=== PATIENT | female | born 1980 | race African-American/Black ===

== ENCOUNTER 2016-09-09 16:34 | Emergency (ER) | payer SELFPAY ==
[~2016-09-09] VITALS: Ht 149.9 cm; Wt 47.6 kg
[2016-09-09 16:56] VITALS: BP 122/88
--- NOTE | 2016-09-09 17:32 | PHYS DOC ---
Past Medical History Past Medical History: Anxiety, GERD, Migraines, Other Additional Past Medical Histor: gallstones, chronic abdominal pain Past Surgical History: Other Additional Past Surgical Histo: d and c Smoking: Cigar Alcohol Use: Occasionally Drug Use: Marijuana Adult General Chief Complaint Chief Complaint: DENTAL PROBLEM HPI HPI Patient is a 36 year old female who presents with lower lip laceration and dental injury after mechanical fall last night at 2300. She reports that she tripped and fell. Her front top teeth went into the lower lip and caused a laceration. Tooth #8 broke. She glued the tooth back together at home. She denies loss of consciousness. She does not have headache, nausea, vomiting, dizziness, vision changes, neck pain, or fevers. She is unsure of her last tetanus immunization. She does not have a PCP. Review of Systems Review of Systems Constitutional: Denies fever or chills. [] Eyes: Denies change in visual acuity, redness, or eye pain. [] HENT: Denies ear pain, nasal congestion or sore throat. Reports dental fracture and intraoral laceration. GI: Denies abdominal pain, nausea, vomiting. [] Musculoskeletal: Denies back pain or joint pain. Denies neck pain. Integument: Denies rash or skin lesions. Reports intraoral laceration. Neurologic: Denies headache, focal weakness or sensory changes. Denies loss of consciousness or dizziness. All systems reviewed and negative unless otherwise stated in the HPI. Current Medications Current Medications Current Medications Medications (Trade) Dose Ordered Sig/Nancy Start Time Stop Time Status Last Admin Dose Admin Diphtheria/ Tetanus/Acell Pertussis (Boostrix) 0.5 ml ONCE ONCE 09/09/16 17:45 09/09/16 17:46 DC 09/09/16 17:42 0.5 ML Allergies Allergies Allergies Coded Allergies Type Severity Reaction Last Updated Verified Cephalexin Monohydrate Allergy Severe swelling 08/31/14 Yes Physical Exam Physical Exam Constitutional: Well developed, well nourished, no acute distress, non-toxic appearance. [] HENT: Normocephalic, atraumatic, bilateral external ears normal, oropharynx moist, no oral exudates, nose normal. Bilateral TMs without erythema or bulging. There is no hemotympanum. There is no septal hematoma or evidence of epistaxis in the nares. Tooth #8 is fractured but has been glued back in place. There is no dental avulsion. There is a 1 cm intraoral laceration of the left lower lip that does not extend through to the exterior. There is moderate swelling of the lower lip. Eyes: PERRLA, EOMI, conjunctiva normal, no discharge. [] Neck: Normal range of motion, no midline or paraspinal tenderness, supple, no stridor. [] Skin: Warm, dry, no erythema, no rash. Intraoral laceration of the lower lip. Back: No tenderness, no CVA tenderness. [] Extremities: No tenderness, no cyanosis, no clubbing, ROM intact, no edema. [] Neurologic: Alert and oriented X 3, normal motor function, normal sensory function, no focal deficits noted. CN II-XII grossly intact. Psychologic: Affect normal, judgement normal, mood normal. [] Current Patient Data Vital Signs Vital Signs Date Time Temp Pulse Resp B/P Pulse Ox O2 Delivery O2 Flow Rate FiO2 09/09/16 16:56 98.3 102 20 100 Room Air 98.3 EKG EKG [] Radiology/Procedures Radiology/Procedures [] Course & Med Decision Making Course & Med Decision Making Pertinent Labs and Imaging studies reviewed. (See chart for details) Patient presents with intraoral lip laceration and broken tooth after mechanical fall last night. She removed the tooth herself at home. There is swelling of the lower lip associated with the laceration. It has been almost 24 hours since the injury, so is not repaired in the emergency department. There are no neurologic deficits. The patient is instructed to adhere to a soft diet. She is instructed to follow-up with a dentist as soon as possible. She is discharged home with prescription for antibiotics and pain medication. Return precautions were discussed. She verbalizes understanding and agrees with plan. Dragon Disclaimer Dragon Disclaimer This electronic medical record was generated, in whole or in part, using a voice recognition dictation system. Departure Departure Impression: Primary Impression: Broken tooth Additional Impression: Lip laceration Disposition: HOME, SELF-CARE Condition: STABLE Referrals: NO PCP (PCP) Patient Instructions: Mouth Laceration, [id number], Tooth Injuries, Easy-to- Read Additional Instructions: Please complete all the prescribed antibiotics, even if you are feeling better. Please take the prescribed pain medication as instructed. Do not drive or operate heavy machinery while taking pain medication. Please follow-up with the dentist of your choice as soon as possible. Return to the emergency department if you have any new or concerning symptoms. Scripts Clindamycin Hcl 150 Mg Capsule2 Cap PO QID 10 Days Prov:COLLIN GONZALES 09/09/16 Hydrocodone/Apap 5-325 ([place] 5-325 Tablet)1 Each Tablet1 Tab PO PRN Q6HRS PRN PAIN #20 TAB Prov:COLLIN GONZALES 09/09/16 Problem Qualifiers Primary Impression: Broken tooth Encounter type: initial encounter Fracture type: closed Qualified Code: S02.5XXA - Fracture of tooth (traumatic), initial encounter for closed fracture Additional Impression: Lip laceration Encounter type: initial encounter Qualified Code: S01.511A - Laceration without foreign body of lip, initial encounter COLLIN GONZALES Sep 09, 2016 17:32
[2016-09-09] MEDS ORDERED: DIPHTH,PERTUSS(ACELL),TET TOX 0.5 ML DISP.SYRIN. VAX IM ONE (17:45)
[2016-09-09] MEDS ORDERED: CLIN-44 PO (18:16)
[2016-09-09] MEDS ORDERED: HYDR-971 PO (18:16)
== END 2016-09-09 18:18 | disposition home or self-care (01) ==
LOC: ER 16:34
DX: S02.5XXA Fracture of tooth (traumatic), initial encounter for closed fracture (principal); S01.511A Laceration without foreign body of lip, initial encounter; G89.29 Other chronic pain; F41.9 Anxiety disorder, unspecified; K21.9 Gastro-esophageal reflux disease without esophagitis; G43.909 Migraine, unspecified, not intractable, without status migrainosus; F17.210 Nicotine dependence, cigarettes, uncomplicated; F12.10 Cannabis abuse, uncomplicated; Z88.8 Allergy status to other drugs, medicaments and biological substances; W01.0XXA Fall on same level from slipping, tripping and stumbling without subsequent striking against object, initial encounter; Y93.89 Activity, other specified; Y92.89 Other specified places as the place of occurrence of the external cause; Y99.8 Other external cause status
CPT/HCPCS: 12002; 90471; 90715; 99283-25

== ENCOUNTER 2017-08-31 08:05 | Emergency (ER) | payer SELFPAY ==
[2017-08-31] MEDS: CAPSAICIN 0.025% TOPICAL CREAM 60GM TUBE. TP (08:30)
[2017-08-31 08:35] LABS: URINE HCG POC HCG NEGATIVE (Negative)
[2017-08-31 08:37] LABS: BILIRUBIN,URINE NEGATIVE (NEG); CLARITY,URINE TURBID; COLOR,URINE YELLOW; GLUCOSE,URINE NEGATIVE (NEG); NITRITE,URINE NEGATIVE (NEG); PROTEIN,URINE NEGATIVE (NEG-TRACE); UROBILINOGEN,URINE 0.2 mg/dL (0.2 mg/dL)
[2017-08-31 08:45] LABS: SQUAMOUS EPITHELIAL CELL,UR MANY /LPF
[2017-08-31 08:46] LABS: RBC,URINE 0 /HPF (0-2)
[2017-08-31 08:47] LABS: BACTERIA,URINE MANY /HPF (0-FEW)
[2017-08-31 08:56] LABS: BASO # 0.2 x10^3/uL (0.0-0.2); BASO % 1 % (0-3); EOS % 0 % (0-3); HEMATOCRIT 40.6 % (36.0-47.0); HEMOGLOBIN 13.4 g/dL (12.0-15.5); LYMPH # 1.5 x10^3/uL (1.0-4.8); LYMPH % 6 % (24-48); MEAN CORPUSCULAR HEMOGLOBIN 24 pg (25-35); MEAN CORPUSCULAR HGB CONC 33 g/dL (31-37); MEAN CORPUSCULAR VOLUME 74 fL (79-100); MONO % 4 % (0-9); NEUT # 21.7 x10^3uL (1.8-7.7); NEUT % 89 % (31-73); PLATELET COUNT 272 x10^3/uL (140-400); RED BLOOD COUNT 5.47 x10^6/uL (3.50-5.40); WHITE BLOOD COUNT 24.5 x10^3/uL (4.0-11.0)
[2017-08-31] MEDS: PROMETHAZINE 25 MG in IV DEXTROSE 5% 50 ML IV (08:56)
[2017-08-31] MEDS: IV NORMAL SALINE 1000ML BAG 1,000 ML IV (08:56)
[2017-08-31] MEDS: LIDO:MAALOX:DONNATAL 1:1:1 15 ML SINGLE DOSE SWSW (08:56)
[2017-08-31 08:59] LABS: ADD MAN DIFF? YES
[2017-08-31 09:08] LABS: ANION GAP 23 (6-14); BLOOD UREA NITROGEN 15 mg/dL (7-20); BUN/CREATININE RATIO 19 (6-20); CALCIUM 10.5 mg/dL (8.5-10.1); CARBON DIOXIDE 16 mmol/L (21-32); CHLORIDE 98 mmol/L (98-107); CREATININE 0.8 mg/dL (0.6-1.0); GFR 98.8; GLUCOSE 135 mg/dL (70-99); SODIUM 137 mmol/L (136-145)
[2017-08-31 09:15] LABS: ALBUMIN 4.5 g/dL (3.4-5.0); ALBUMIN/GLOBULIN RATIO 0.9 (1.0-1.7); ALK PHOS 81 U/L (46-116); ALT (SGPT) 49 U/L (14-59); AMYLASE 75 U/L (25-115); AST (SGOT) 58 U/L (15-37); LIPASE 57 U/L (73-393); TOTAL BILIRUBIN 1.4 mg/dL (0.2-1.0); TOTAL PROTEIN 9.3 g/dL (6.4-8.2)
[2017-08-31 09:25] LABS: POTASSIUM 4.6 mmol/L (3.5-5.1)
[2017-08-31] MEDS: IOHEXOL 300 MG/ML 100ML VIAL. IV (10:09)
[2017-08-31] MEDS ORDERED: CONTRAST GIVEN MC (10:15)
[2017-08-31 10:54] LABS: % BANDS 7 % (0-9); % LYMPHS 8 % (24-48); % MONOS 5 % (0-10); % SEGS 80 % (35-66); PLT ESTIMATE ADEQUATE (ADEQUATE)
[2017-08-31 10:56] LABS: ANISOCYTOSIS SLIGHT; HYPOCHROMIA SLIGHT; TARGET CELLS MOD
[2017-08-31 10:57] LABS: OVALOCYTES MOD; SCHISTOCYTES OCC; TEAR DROP CELLS FEW
== END 2017-08-31 11:10 | disposition home or self-care (01) ==
LOC: ER 08:05
DX: K31.84 Gastroparesis (principal); F41.9 Anxiety disorder, unspecified; G89.29 Other chronic pain; K21.9 Gastro-esophageal reflux disease without esophagitis; G43.909 Migraine, unspecified, not intractable, without status migrainosus; F17.200 Nicotine dependence, unspecified, uncomplicated; F12.10 Cannabis abuse, uncomplicated; Z88.1 Allergy status to other antibiotic agents
CPT/HCPCS: 36415; 74177; 80053; 81001; 81025; 82150; 83690; 85007; 85025; 96365; 99285-25; J2550; J7030; Q9967

== ENCOUNTER 2017-08-31 15:30 | Emergency (ER) | payer SELFPAY ==
[2017-08-31] MEDS: IV NORMAL SALINE 1000ML BAG 1,000 ML IV (16:16)
[2017-08-31] MEDS: HALOPERIDOL LACTATE 5 MG/ML VIAL. IVP (16:17)
[2017-08-31] MEDS: DEXAMETHASONE SOD PHOS 4 MG/ML VIAL IV (16:17)
[2017-08-31 17:03] LABS: AGAP ISTAT 20 mmol/L (6-14); BUN ISTAT 10 mg/dL (8-26); CHLORIDE ISTAT 102 mmol/L (98-110); CREATININE ISTAT 0.6 mg/dL (0.5-1.4); GLUCOSE ISTAT 144 mg/dL (70-99); HEMATOCRIT ISTAT 40 % (36-40); HEMOGLOBIN ISTAT 13.6 g/dL (12-15); ION CA ISTAT 1.15 mmol/L (1.13-1.32); POTASSIUM ISTAT 3.5 mmol/L (3.5-5.0); SODIUM ISTAT 138 mmol/L (135-145); TOT CO2 ISTAT 21 mmol/L (23-32)
[2017-08-31] MEDS: CAPSAICIN 0.025% TOPICAL CREAM 60GM TUBE. TP (18:06)
== END 2017-08-31 18:13 | disposition home or self-care (01) ==
LOC: ER 15:30
DX: G43.A0 Cyclical vomiting, in migraine, not intractable (principal); R10.84 Generalized abdominal pain; R00.0 Tachycardia, unspecified; F41.9 Anxiety disorder, unspecified; K21.9 Gastro-esophageal reflux disease without esophagitis; G89.29 Other chronic pain; K31.84 Gastroparesis; F12.10 Cannabis abuse, uncomplicated; G43.909 Migraine, unspecified, not intractable, without status migrainosus; Z88.1 Allergy status to other antibiotic agents
CPT/HCPCS: 36415; 80047; 85014; 85018; 96361; 96374; 96375; 99285-25; J1100; J1630; J7030

== ENCOUNTER 2018-12-15 10:23 | Emergency (ER) | payer SELFPAY ==
[~2018-12-15] VITALS: Ht 149.9 cm; Wt 48.1 kg
[~2018-12-15 10:23] MED LIST: CLIN150C14 PO; HYDR-3164 PO; IBUP200T77 PO; METO10TA81 PO; ONDA4TAB10 SL; TRAM50TA PO
[2018-12-15 10:28] VITALS: BP 130/68
[2018-12-15] MEDS ORDERED: CYCL10TA2 PO (11:00)
[2018-12-15] MEDS ORDERED: METH4TAB2 PO (11:00)
--- NOTE | 2018-12-15 11:00 | PHYS DOC ---
Past Medical History Past Medical History: Anxiety, Gallstones, GERD, Migraines, Other Additional Past Medical Histor: gallstones, chronic abdominal pain, gastroparesis Past Surgical History: Other Additional Past Surgical Histo: d and c Alcohol Use: Occasionally Drug Use: Marijuana Adult General Chief Complaint Chief Complaint: HEADACHE HPI HPI Patient is a 38 year old female with history of migraine headaches, sciatica, anxiety, who presents to the ED today complaining of 10 out of 10 throbbing intermittent generalized migraine headache with photophobia that began at 8 AM this morning. Patient denies anything relieving the pain, she states she tried naproxen with no relief. Denies this being the worst headache in her life, she states this migraine headache is consistent with her regular migraines. 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 Denies any injury. Denies any loss of bowel bladder function. Review of Systems Review of Systems Constitutional: Denies fever or chills [] Eyes: Denies change in visual acuity, redness, or eye pain [] HENT: Denies nasal congestion or sore throat [] Respiratory: Denies cough or shortness of breath [] Cardiovascular: No additional information not addressed in HPI [] GI: Denies abdominal pain, nausea, vomiting, bloody stools or diarrhea [] : Denies dysuria or hematuria [] Musculoskeletal: Reports right low back pain radiating to the right lower extremity Integument: Denies rash or skin lesions [] Neurologic: Reports headache, denies focal weakness or sensory changes [] All other systems were reviewed and found to be within normal limits, except as documented in this note. Current Medications Current Medications Current Medications Medications (Trade) Dose Ordered Sig/Nancy Start Time Stop Time Status Last Admin Dose Admin Dexamethasone Sodium Phosphate (Decadron) 10 mg 1X ONCE 12/15/18 11:15 12/15/18 11:16 Diphenhydramine HCl (Benadryl) 25 mg 1X ONCE 12/15/18 11:15 12/15/18 11:16 Ketorolac Tromethamine (Toradol Im) 60 mg 1X ONCE 12/15/18 11:15 12/15/18 11:16 Prochlorperazine Edisylate (Compazine) 10 mg 1X ONCE 12/15/18 11:15 12/15/18 11:16 Allergies Allergies Allergies Coded Allergies Type Severity Reaction Last Updated Verified Cephalexin Monohydrate Allergy Severe swelling 08/31/14 Yes Physical Exam Physical Exam Constitutional: Well developed, well nourished, no acute distress, non-toxic appearance. [] HENT: Normocephalic, atraumatic, bilateral external ears normal, oropharynx moist, no oral exudates, nose normal. [] Eyes: PERRLA, EOMI, conjunctiva normal, no discharge. [] Neck: Normal range of motion, no tenderness, supple, no stridor. [] Cardiovascular:Heart rate regular rhythm, no murmur [] Lungs & Thorax: Bilateral breath sounds clear to auscultation [] Abdomen: Bowel sounds normal, soft, no tenderness, no masses, no pulsatile masses. [] Skin: Warm, dry, no erythema, no rash. [] Back: Mild SI joint tenderness on the right side, no midline lumbar spine tenderness, no CVA tenderness. Positive right leg straight raises Extremities: No tenderness, no cyanosis, no clubbing, ROM intact, no edema. [] Neurologic: Alert and oriented X 3, normal motor function, normal sensory function, no focal deficits noted. Cranial nerves II through XII intact Psychologic: Affect normal, judgement normal, mood normal. [] Current Patient Data Vital Signs Vital Signs Date Time Temp Pulse Resp B/P (MAP) Pulse Ox O2 Delivery O2 Flow Rate FiO2 12/15/18 10:28 97.9 65 18 130/68 (88) 100 Room Air 97.9 Lab Values Laboratory Tests Test 12/15/18 10:36 POC Urine HCG, Qualitative Hcg negative (Negative) EKG EKG [] Radiology/Procedures Radiology/Procedures [] Course & Med Decision Making Course & Med Decision Making Pertinent Labs and Imaging studies reviewed. (See chart for details) This is a 38-year-old female patient presented to the ED today with a migraine headache as well as sciatic pain, this is nothing unusual about her migraine today, no cauda equina syndrome symptoms. Patient was given migraine cocktail. Discharged to home. Follow-up with PCP in 1-2 weeks. Dragon Disclaimer Dragon Disclaimer This electronic medical record was generated, in whole or in part, using a voice recognition dictation system. Departure Departure Impression: Primary Impression: Sciatica, right side Additional Impression: Migraine headache Disposition: 01 HOME, SELF-CARE Condition: STABLE Referrals: NO PCP (PCP) DESEAN TSANG MD follow up in 1-2 weeks RILEY AQUINO MD follow up in 1-2 weeks Patient Instructions: Migraine Headache, Sciatica Additional Instructions: You were evaluated in the emergency room for migraine headache and sciatic pain. Take the prescribed medications as ordered. Follow-up with your doctor in 1-2 weeks. You can also follow up with the pain clinic doctor as well as neurologist provided Scripts Methylprednisolone (MEDROL) 4 Mg Tab.ds.pk 1 PKG PO UD, #1 PKG Prov: DAVY GUILLAUME BEAD TRIMMER 12/15/18 Cyclobenzaprine Hcl (CYCLOBENZAPRINE HCL) 10 Mg Tablet 1 TAB PO TID, #30 TAB Prov: DAVY GUILLAUME BEAD TRIMMER 12/15/18 Problem Qualifiers Additional Impression: Migraine headache Migraine type: without aura Status migrainosus presence: without status migrainosus Intractability: not intractable Qualified Codes: G43.009 - Migraine without aura, not intractable, without status migrainosus DAVY GUILLAUME BEAD TRIMMER Dec 15, 2018 11:00
[2018-12-15] MEDS ORDERED: KETOROLAC 60 MG/2 ML VIAL. IM ONE (11:15)
[2018-12-15] MEDS ORDERED: DEXAMETHASONE SOD PHOS 20 MG/5 ML VIAL. IM ONE (11:15)
[2018-12-15] MEDS ORDERED: diphenhydrAMINE HCL 25 MG CAPSULE PO ONE (11:15)
[2018-12-15] MEDS ORDERED: PROCHLORPERAZINE 10 MG/2 ML VIAL. IM ONE (11:15)
== END 2018-12-15 11:19 | disposition home or self-care (01) ==
LOC: ER 10:23
DX: G43.009 Migraine without aura, not intractable, without status migrainosus (principal); M54.41 Lumbago with sciatica, right side; F41.9 Anxiety disorder, unspecified; K21.9 Gastro-esophageal reflux disease without esophagitis; G89.29 Other chronic pain; Z88.1 Allergy status to other antibiotic agents
CPT/HCPCS: 81025; 96372; 99284; J0780; J1100; J1885; Q0163

== ENCOUNTER 2019-08-30 18:38 | Emergency (ER) | payer SELFPAY ==
[~2019-08-30] VITALS: Ht 149.9 cm; Wt 47.7 kg
[~2019-08-30 18:38] MED LIST changes: +CYCL10TA2 PO; +METH4TAB2 PO
[2019-08-30 20:17] LABS: BASO % 0 % (0-3); EOS % 0 % (0-3); HEMOGLOBIN 11.3 g/dL (12.0-15.5); LYMPH # 0.8 x10^3/uL (1.0-4.8); LYMPH % 6 % (24-48); MEAN CORPUSCULAR HEMOGLOBIN 24 pg (25-35); MEAN CORPUSCULAR HGB CONC 32 g/dL (31-37); MEAN CORPUSCULAR VOLUME 74 fL (79-100); MONO # 0.6 x10^3/uL (0.0-1.1); MONO % 5 % (0-9); NEUT % 89 % (31-73); PLATELET COUNT 214 x10^3/uL (140-400); RED BLOOD COUNT 4.72 x10^6/uL (3.50-5.40); RED CELL DISTRIBUTION WIDTH 14.8 % (11.5-14.5); WHITE BLOOD COUNT 13.5 x10^3/uL (4.0-11.0)
[2019-08-30 20:25] LABS: CALCIUM 9.3 mg/dL (8.5-10.1); CREATININE 1.1 mg/dL (0.6-1.0); GFR 67.6; POTASSIUM 3.1 mmol/L (3.5-5.1)
[2019-08-30 20:31] LABS: ALBUMIN 4.4 g/dL (3.4-5.0); ALBUMIN/GLOBULIN RATIO 1.1 (1.0-1.7); TOTAL BILIRUBIN 1.1 mg/dL (0.2-1.0); TOTAL PROTEIN 8.3 g/dL (6.4-8.2)
[2019-08-30] MEDS: IV NORMAL SALINE 1000ML BAG 1,000 ML IV ONE (20:41)
[2019-08-30] MEDS: LIDO:MAALOX 1:1 20 ML SINGLE DOSE. SWSW ONE (20:42)
[2019-08-30] MEDS: ONDANSETRON PF 4 MG/2 ML VIAL. IVP ONE (20:43)
[2019-08-30] MEDS: FAMOTIDINE 20 MG/2 ML VIAL IVP ONE (20:44)
[2019-08-30] MEDS: HALOPERIDOL LACTATE 5 MG/ML VIAL. IVP ONE (20:44)
[2019-08-30 20:52] LABS: BILIRUBIN,URINE NEGATIVE (NEG); CLARITY,URINE CLOUDY; COLOR,URINE YELLOW; NITRITE,URINE NEGATIVE (NEG); PROTEIN,URINE 30 mg/dL (NEG-TRACE); UROBILINOGEN,URINE 0.2 mg/dL (0.2 mg/dL)
[2019-08-30 20:56] LABS: % LYMPHS 4 % (24-48); % MONOS 5 % (0-10); % SEGS 91 % (35-66); HYPOCHROMIA SLIGHT; MICROCYTOSIS SLIGHT; OVALOCYTES FEW; PLT ESTIMATE ADEQUATE (ADEQUATE); SQUAMOUS EPITHELIAL CELL,UR MOD /LPF; TOXIC GRANULATION SLIGHT
[2019-08-30 20:58] LABS: BACTERIA,URINE MOD /HPF (0-FEW); RBC,URINE OCC /HPF (0-2); WBC,URINE OCC /HPF (0-4)
[2019-08-30 21:05] LABS: BARBITURATES NEG (NEG); BENZODIAZEPINES NEG (NEG); CANNABINOIDS POS (NEG); COCAINE NEG (NEG); METHADONE NEG (NEG); OPIATES NEG (NEG); PHENCYCLIDINE NEG (NEG)
[2019-08-30 21:07] LABS: AMPHETAMINE/METHAMPHETAMINE NEG (NEG)
--- NOTE | 2019-08-30 21:37 | PHYS DOC ---
Past Medical History Past Medical History: Anxiety, Gallstones, GERD, Migraines, Other Additional Past Medical Histor: gallstones, chronic abdominal pain, gastroparesis Past Surgical History: Other Additional Past Surgical Histo: d and c Smoking Status: Current Every Day Smoker Alcohol Use: Occasionally Drug Use: Marijuana Adult General Chief Complaint Chief Complaint: ABDOMINAL PAIN HPI HPI Patient is a 39 year old female with a history of anxiety, acid reflux, gastritis, who presents to the ED today complaining of 10 out of 10 epigastric abdominal pain with nausea vomiting, symptoms began yesterday. Patient reports she was at [facility] for 8 hours and they did not do anything for her. She reports she has been sitting in the waiting room all the time but then moved at the patient's throat. Patient denies any exacerbating or relieving factors to her pain. She is thrashing around the bed. Review of Systems Review of Systems Constitutional: Denies fever or chills [] Eyes: Denies change in visual acuity, redness, or eye pain [] HENT: Denies nasal congestion or sore throat [] Respiratory: Denies cough or shortness of breath [] Cardiovascular: No additional information not addressed in HPI [] GI: reports abdominal pain, nausea, vomiting, denies bloody stools or diarrhea [] : Denies dysuria or hematuria [] Musculoskeletal: Denies back pain or joint pain [] Integument: Denies rash or skin lesions [] Neurologic: Denies headache, focal weakness or sensory changes [] All other systems were reviewed and found to be within normal limits, except as documented in this note. Current Medications Current Medications Current Medications Medications (Trade) Dose Ordered Sig/[facility] Start Time Stop Time Status Last Admin Dose Admin Famotidine (Pepcid Vial) 20 mg 1X ONCE 08/30/19 20:15 08/30/19 20:16 DC 08/30/19 20:44 20 MG Haloperidol Lactate (Haldol Inj) 5 mg 1X ONCE 08/30/19 20:15 08/30/19 20:16 DC 08/30/19 20:44 5 MG Multi-Ingredient Mouthwash/Gargle (Gi Cocktail) 20 ml 1X ONCE 08/30/19 20:15 08/30/19 20:16 DC 08/30/19 20:42 20 ML Ondansetron HCl (Zofran) 4 mg 1X ONCE 08/30/19 20:15 08/30/19 20:16 DC 08/30/19 20:43 4 MG Potassium Chloride (Klor-Con) 40 meq 1X ONCE 08/30/19 21:30 08/30/19 21:31 DC Sodium Chloride 1,000 ml @ 1,000 mls/hr 1X ONCE 08/30/19 20:15 08/30/19 21:14 DC 08/30/19 20:41 1,000 MLS/HR Allergies Allergies Allergies Coded Allergies Type Severity Reaction Last Updated Verified Cephalexin Monohydrate Allergy Severe swelling 08/31/14 Yes Physical Exam Physical Exam Constitutional: Well developed, well nourished, no acute distress, non-toxic appearance. [] HENT: Normocephalic, atraumatic, bilateral external ears normal, oropharynx moist, no oral exudates, nose normal. [] Eyes: PERRLA, EOMI, conjunctiva normal, no discharge. [] Neck: Normal range of motion, no tenderness, supple, no stridor. [] Cardiovascular:Heart rate regular rhythm, no murmur [] Lungs & Thorax: Bilateral breath sounds clear to auscultation [] Abdomen: Bowel sounds normal, soft, no tenderness, no masses, no pulsatile ma sses. [] Skin: Warm, dry, no erythema, no rash. [] Back: No tenderness, no CVA tenderness. [] Extremities: No tenderness, no cyanosis, no clubbing, ROM intact, no edema. [] Neurologic: Alert and oriented X 3, normal motor function, normal sensory function, no focal deficits noted. [] Psychologic: patient thrashing around the bed. Current Patient Data Lab Values Laboratory Tests Test 08/30/19 19:45 08/30/19 20:32 White Blood Count 13.5 x10^3/uL (4.0-11.0) H Red Blood Count 4.72 x10^6/uL (3.50-5.40) Hemoglobin 11.3 g/dL (12.0-15.5) L Hematocrit 35.0 % (36.0-47.0) L Mean Corpuscular Volume 74 fL (79-100) L Mean Corpuscular Hemoglobin 24 pg (25-35) L Mean Corpuscular Hemoglobin Concent 32 g/dL (31-37) Red Cell Distribution Width 14.8 % (11.5-14.5) H Platelet Count 214 x10^3/uL (140-400) Neutrophils (%) (Auto) 89 % (31-73) H Lymphocytes (%) (Auto) 6 % (24-48) L Monocytes (%) (Auto) 5 % (0-9) Eosinophils (%) (Auto) 0 % (0-3) Basophils (%) (Auto) 0 % (0-3) Neutrophils # (Auto) 12.0 x10^3/uL (1.8-7.7) H Lymphocytes # (Auto) 0.8 x10^3/uL (1.0-4.8) L Monocytes # (Auto) 0.6 x10^3/uL (0.0-1.1) Eosinophils # (Auto) 0.0 x10^3/uL (0.0-0.7) Basophils # (Auto) 0.0 x10^3/uL (0.0-0.2) Segmented Neutrophils % 91 % (35-66) H Lymphocytes % 4 % (24-48) L Monocytes % 5 % (0-10) Toxic Granulation Slight Platelet Estimate Adequate (ADEQUATE) Hypochromasia Slight Microcytosis Slight Ovalocytes Few Urine Collection Type Unknown Urine Color Yellow Urine Clarity Cloudy Urine pH 8.0 (<5.0-8.0) Urine Specific [place] 1.025 (1.000-1.030) Urine Protein 30 mg/dL (NEG-TRACE) Urine Glucose (UA) Negative mg/dL (NEG) Urine Ketones (Stick) 40 mg/dL (NEG) Urine Blood Negative (NEG) Urine Nitrite Negative (NEG) Urine Bilirubin Negative (NEG) Urine Urobilinogen Dipstick 0.2 mg/dL (0.2 mg/dL) Urine Leukocyte Esterase Negative (NEG) Urine RBC Occ /HPF (0-2) Urine WBC Occ /HPF (0-4) Urine Squamous Epithelial Cells Mod /LPF Urine Bacteria Mod /HPF (0-FEW) Urine Mucus Marked /LPF Sodium Level 141 mmol/L (136-145) Potassium Level 3.1 mmol/L (3.5-5.1) L Chloride Level 100 mmol/L (98-107) Carbon Dioxide Level 24 mmol/L (21-32) Anion Gap 17 (6-14) H Blood Urea Nitrogen 10 mg/dL (7-20) Creatinine 1.1 mg/dL (0.6-1.0) H Estimated GFR (Cockcroft-Gault) 67.6 BUN/Creatinine Ratio 9 (6-20) Glucose Level 119 mg/dL (70-99) H Calcium Level 9.3 mg/dL (8.5-10.1) Total Bilirubin 1.1 mg/dL (0.2-1.0) H Aspartate Amino Transferase (AST) 31 U/L (15-37) Alanine Aminotransferase (ALT) 43 U/L (14-59) Alkaline Phosphatase 65 U/L (46-116) Total Protein 8.3 g/dL (6.4-8.2) H Albumin 4.4 g/dL (3.4-5.0) Albumin/Globulin Ratio 1.1 (1.0-1.7) Lipase 50 U/L (73-393) L Urine Opiates Screen Neg (NEG) Urine Methadone Screen Neg (NEG) Urine Barbiturates Neg (NEG) Urine Phencyclidine Screen Neg (NEG) Urine Amphetamine/Methamphetamine Neg (NEG) Urine Benzodiazepines Screen Neg (NEG) Urine Cocaine Screen Neg (NEG) Urine Cannabinoids Screen Pos (NEG) Ethyl Alcohol Level < 10 mg/dL (0-10) Urine Ethyl Alcohol Neg (NEG) POC Urine HCG, Qualitative Hcg negative (Negative) Laboratory Tests 08/30/19 19:45 Laboratory Tests 08/30/19 19:45 EKG EKG [] Radiology/Procedures Radiology/Procedures [] Course & Med Decision Making Course & Med Decision Making Pertinent Labs and Imaging studies reviewed. (See chart for details) This is a 39-year-old female patient presenting to the ED today complaining of epigastric abdominal pain with nausea vomiting since yesterday. Known history of acid reflux. See HPI. Patient arrives in the ED thrashing herself around. She reports waiting at [facility] for 8 hours. CBC with nothing really acute, CMP with potassium of 3.1, given oral potassium replacement. Positive for marijuana use. Patient was given GI cocktail, IV fluids, Pepcid, Zofran and Haldol. She calmed down. She was sent back home. Dragon Disclaimer Dragon Disclaimer This electronic medical record was generated, in whole or in part, using a voice recognition dictation system. Departure Departure Impression: Primary Impression: Gastritis Additional Impressions: Cyclical vomiting syndrome Marijuana use Hypokalemia Disposition: HOME, SELF-CARE Condition: STABLE Referrals: NO PCP (PCP) NEVA HODGSON MD follow up in 1-2 weeks Patient Instructions: Cyclic Vomiting Syndrome, Marijuana Abuse-Brief Additional Instructions: Please consider not using marijuana. This drug is associated with cyclic vomiting. Follow-up with the provided GI doctor. Take the prescribed medications as ordered. Scripts Ondansetron (ONDANSETRON ODT) 4 Mg Tab.rapdis 1 TAB PO PRN Q6-8HRS, #16 TAB Prov: DAVY GUILLAUME APRN 08/30/19 Pantoprazole Sodium (PROTONIX) 20 Mg Tablet.dr 1 TAB PO DAILY, #30 TAB Prov: DAVY GUILLAUME APRN 08/30/19 Problem Qualifiers Primary Impression: Gastritis Gastritis type: unspecified gastritis Chronicity: acute Gastritis blee ding: without bleeding Qualified Codes: K29.00 - Acute gastritis without bleeding DAVY GUILLAUME APRN Aug 30, 2019 21:36
[2019-08-30] MEDS ORDERED: ONDA4TAB12 PO (21:49)
[2019-08-30] MEDS ORDERED: PANT20TA2 PO (21:49)
[2019-08-30 21:59] VITALS: BP 118/74
[2019-08-30] MEDS: POTASSIUM CHLORIDE 20 MEQ TABLET.ER. PO ONE (22:17)
== END 2019-08-30 22:22 | disposition home or self-care (01) ==
LOC: ER 18:38
DX: K29.00 Acute gastritis without bleeding (principal); R11.15 Cyclical vomiting syndrome unrelated to migraine; E87.6 Hypokalemia; F12.90 Cannabis use, unspecified, uncomplicated; F41.9 Anxiety disorder, unspecified; K21.9 Gastro-esophageal reflux disease without esophagitis; G43.909 Migraine, unspecified, not intractable, without status migrainosus; G89.29 Other chronic pain; F17.200 Nicotine dependence, unspecified, uncomplicated; Z88.1 Allergy status to other antibiotic agents
CPT/HCPCS: 36415; 80053; 80307; 81001; 81025; 83690; 85007; 85025; 96361; 96374; 96375; 99285; G0480; J1630; J2405; J3490; J7030